=== PATIENT | female | born 2000 | race Two or more races ===

== ENCOUNTER 2025-05-28 09:35 | Emergency (ER) | payer OTHER, SELFPAY ==
[2025-05-28 09:44] VITALS: BP 107/70; PULSE 103; RESP 18; TEMP 38.1; O2SAT 100; BMI 28.5
--- NOTE | 2025-05-28 09:55 | PD.EDRME ---
Rapid Medical Screening Exam E Arrival date/time: 05/28/25 09:35 This is a 24-year-old female that comes into the emergency room with complaints of bodyaches, nausea, vomiting, diarrhea headache and mild abdominal pain/cramping. Patient states that on May 25 she became very ill at work and got dizzy. Patient was taken to a clinic in [place] and told that she likely has heat exhaustion. Patient returned to work the next day and was still not feeling better and was told that if she was not feeling better to come to the emergency room because she may need IV fluids. Patient does not think she is . Patient denies any other sick contacts. Patient denies any other symptoms. Patient denies past medical history. I have greeted and performed a focused initial assessment of this patient. Initial appropriate labs ordered at this time. A comprehensive ED assessment and evaluation of the patient and analysis of all test and completion of medical decision making process will be conducted by additional ED provider. Chief Complaint: Nausea/Vomiting/Diarrhea Time Seen by Provider: 05/28/25 09:54 Vital signs: Vital Signs Temperature 100.5 F H 05/28/25 09:44 Pulse Rate 103 H 05/28/25 09:44 Respiratory Rate 18 05/28/25 09:44 Blood Pressure 107/70 05/28/25 09:44 Pulse Oximetry (%) 100 05/28/25 09:44 Oxygen Delivery Method Room Air 05/28/25 09:44
[2025-05-28] MEDS: ACETAMINOPHEN 500 MG TABLET 1000 MG PO (10:23)
--- NOTE | 2025-05-28 10:24 | EDNOTE_ITS ---
ED General RME/HPI General Chief complaint: Nausea/Vomiting/Diarrhea Stated complaint: STEVENSON, vomiting, chest pain X 4 days Time Seen by Provider: 05/28/25 09:54 Arrival date/time: 05/28/25 09:35 RME / HPI RME / HPI narrative: 05/28/25 09:35 This is a 24-year-old female that comes into the emergency room with complaints of bodyaches, nausea, vomiting, diarrhea headache and mild abdominal pain/cramping. Patient states that on May 25 she became very ill at work and got dizzy. Patient was taken to a clinic in [place] and told that she likely has heat exhaustion. Patient returned to work the next day and was still not feeling better and was told that if she was not feeling better to come to the emergency room because she may need IV fluids. Patient does not think she is . Patient denies any other sick contacts. Patient denies any other symptoms. Patient denies past medical history. I have greeted and performed a focused initial assessment of this patient. Initial appropriate labs ordered at this time. A comprehensive ED assessment and evaluation of the patient and analysis of all test and completion of medical decision making process will be conducted by additional ED provider. DR. MENDOZA MAIN ED EVALUATION: 24-year-old female presents with 4 days of headache, chest pain, abdominal pain, and generalized body aches. No fevers or chills. No vomiting or diarrhea. No visual changes. No cough. No known past medical history and no surgical history. Last oral intake was yesterday. Related Data Previous Rx's ?Medication ?Instructions ?Recorded naproxen 500 mg tablet 500 mg PO BID PRN pain #30 t abs 07/28/23 Allergies Allergy/AdvReac Type Severity Reaction Status Date / Time Penicillins Allergy Verified 05/28/25 09:41 Review of Systems Review of Systems Systems Reviewed: All systems reviewed, normal except as documented Past Medical History Social History SMOKING STATUS: Never smoker SUBSTANCE USE: does not use ALCOHOL: Never ED Exam Narrative Physical exam: GENERAL APPEARANCE: alert and oriented x 4, well-developed, well-nourished, no acute distress VITALS: All vitals were reviewed and the pulse ox is 98% on room air, which is normal according to my interpretation. HEENT: Normocephalic, atraumatic; pupils equal, round, reactive to light; EOMI; mucous membranes pink, moist; oropharynx clear NECK: Supple LUNGS: CTABL; no wheezes, no rales, no rhonchi HEART: Regular rate, regular rhythm; normal S1, S2; no murmurs ABDOMEN: non distended; normal BS; soft, no tenderness, no guarding, no rebound; no masses, no organomegaly, no hernia BACK: no CVA tenderness EXTREMITIES: atraumatic; no edema NEUROLOGIC: awake; alert and oriented x4; cranial nerves II-XII grossly intact; no focal sensory or motor deficits PSYCHIATRIC: appropriate mood and affect SKIN: warm, dry, normal color; no rashes Course Quality Measures none Orders Category Date Time Status Bedside COVID-19 Antigen Test NOW Care 05/28/25 09:54 Active Bedside Influenza A&B Antigen Test NOW Care 05/28/25 09:55 Completed CBC Stat Lab 05/28/25 10:38 Completed CMP [Comprehensive Metabolic Panel] Stat Lab 05/28/25 10:38 Completed Drug Screen,Urine Stat Lab 05/28/25 12:30 Completed HCG Qualitative,Urine Stat Lab 05/28/25 12:30 Completed Lipase Stat Lab 05/28/25 10:38 Completed Urinalysis, C/S if Indicated Stat Lab 05/28/25 12:30 Completed Acetaminophen Tab [Tylenol ES Tab] Med 05/28/25 09:55 Discontinued 1,000 mg PO X1 ONE HYDROcodone*/APAP 5/325 [[place] 5/325] Med 05/28/25 14:30 Discontinued 1 tab PO X1 ONE Ketorolac Inj [Toradol Inj] Med 05/28/25 14:30 Discontinued 30 mg IM X1 ONE Ondansetron Odt [Zofran Odt] Med 05/28/25 14:30 Discontinued 4 mg PO X1 ONE Vital Signs Vital signs: Vital Signs Temperature 100.5 F H 05/28/25 09:44 Pulse Rate 103 H 05/28/25 09:44 Respiratory Rate 18 05/28/25 09:44 Blood Pressure 107/70 05/28/25 09:44 Pulse Oximetry (%) 100 05/28/25 09:44 Oxygen Delivery Method Room Air 05/28/25 09:44 Discharge Plan Plan Patient Disposition: HOME (Self Care) Prescriptions/Referrals Prescriptions/Med Rec: No Action naproxen 500 mg tablet 500 mg PO BID PRN (Reason: pain) Qty: 30 0RF Referrals: No Primary/Family,Physician [Primary Care Provider] - In 1 week Problem List Clinical Impression: Vomiting and diarrhea Patient/Caregiver Discharge Instructions Education Materials: ED Vomiting and Diarrhea ... Print Language: Citizen [place] Stand Alone Forms: [place] Award Info., Patient Portal Info Letter MDM Narrative [facility] hospital course: I, Dina Odonnell, am scribing for and in the presence of Dr. Mendoza. Clinical Information Provided by patient Medical Records Reviewed [facility] Meds/Rx Considered, not Ordered None Labs/Rad/Tests considered, not Ordered None Chronic Illness/Social Conditions which may negatively complicate care or outcome(s)-explain: None or not applicable Add or document further as needed: No known past medical history and no surgical history. EKG EKG not done Imaging Imaging interpretation: none Medication Administration(s) Medication Administration History Discontinued Medications Acetaminophen (Acetaminophen 500 Mg Tablet) 1,000 mg PO X1 ONE Stop: 05/28/25 09:56 Last Admin: 05/28/25 10:23 Dose: 1,000 mg Documented By: NICO Hydrocodone Bitart/Acetaminophen (Hydrocodone/Apap 5/325 Tablet) 1 tab PO X1 ONE Stop: 05/28/25 14:31 Last Admin: 05/28/25 14:40 Dose: 1 tab Documented By: MYRON Ketorolac Tromethamine (Ketorolac Inj 30 Mg/Ml Vial) 30 mg IM X1 ONE Stop: 05/28/25 14:31 Last Admin: 05/28/25 14:41 Dose: 30 mg Documented By: EF Ondansetron HCl (Ondansetron Odt 4 Mg Tabrap) 4 mg PO X1 ONE; Protocol Stop: 05/28/25 14:31 Last Admin: 05/28/25 14:40 Dose: 4 mg Documented By: EF Diagnosis Differential dx and/or dx ruled out: Viral syndrome, early influenza or COVID-19, and functional abdominal pain. Most likely dx, and/or detailed dx discussion: Vomiting and diarrhea Dispositon Disposition: Discharge Home
[2025-05-28 10:44] LABS: Basophils # (Auto) 0.0 Thou/mm3 (0.0-0.2); Basophils % (Auto) 0 % (0-2.5); Eosinophils # (Auto) 0.0 Thou/mm3 (0.0-0.5); Eosinophils % (Auto) 0 % (0-10); Hematocrit 38.5 % (36.0-46.0); Hemoglobin 12.1 g/dL (12.0-16.0); Immature Granulocytes Auto 0.02 Thou/mm3 (0.00-0.00); Lymphocytes # (Auto) 0.6 Thou/mm3 (1.0-4.8); Lymphocytes % (Auto) 8 % (10-50); Mean Corpuscular HGB Conc 31.4 g/dl (31.0-37.0); Mean Corpuscular Hemoglobin 23.7 pg (25.0-35.0); Mean Corpuscular Volume 76 fL (80-100); Monocytes # (Auto) 0.5 Thou/mm3 (0.0-0.8); Monocytes % (Auto) 7 % (0-12); Neutrophils # (Auto) 6.4 Thou/mm3 (1.8-7.7); Neutrophils % (Auto) 84 % (37-80); Nucleated Red Blood Cell # 0.00 Thou/mm3 (0.00-0.00); Nucleated Red Blood Cell % 0 /100 WBC (0); Platelet Count 304 Thou/mm3 (140-440); RDW Standard Deviation 41.0 fL (36.4-46.3); Red Blood Count 5.10 Miln/mm3 (4.00-5.20); White Blood Count 7.6 Thou/mm3 (3.6-11.0)
[2025-05-28 11:05] LABS: Alanine Aminotransferase 16 U/L (10-49); Albumin, Serum 4.8 gm/dL (3.5-5.0); Albumin/Globulin Ratio 1.8 (1.2-2.2); Alkaline Phosphatase 113 U/L (46-116); Anion Gap 11 (7-16); Aspartate Amino Transferase 22 U/L (0-34); BUN/Creatinine Ratio 13 Ratio (12-20); Bilirubin,Total 0.5 mg/dL (0.3-1.2); Blood Urea Nitrogen 9 mg/dL (9-23); Calcium 10.0 mg/dL (8.3-10.6); Calcium (Corrected) 10.0 mg/dL (8.5-10.1); Carbon Dioxide 23.8 mMol/L (20.0-31.0); Chloride 103 mMol/L (98-107); Creatinine (Component) 0.7 mg/dL (0.6-1.3); Estimated Creatinine Clearance 115.2 mL/min (>60); Globulin 2.7 gm/dL (2.3-3.5); Glucose 97 mg/dL (74-106); Lipase 27 U/L (12-53); Osmolality,Calculated 274 (275-295); Potassium 4.5 mMol/L (3.4-5.1); Sodium 138 mMol/L (136-145); Total Protein 7.5 gm/dL (5.7-8.2); eGFR > 60 See Note
[2025-05-28 12:56] LABS: Collection Type, Urine Voided
[2025-05-28 13:09] LABS: Bilirubin,Urine Negative (Negative); Blood,Urine 1+ (Negative); Clarity,Urine Clear (Clear/Hazy); Color,Urine Lt-Yellow (Lt Yel-Yel); Culture Indicated,Urine Not Indicated; Glucose, Urine Negative (Negative); Ketones,Urine Negative (Negative); Leukocyte Esterase,Urine Negative (Negative); Nitrite,Urine Negative (Negative); PH,Urine 8.0 (5.0-7.0); Protein,Urine Negative (Neg - Trace); RBC,Urine 2 /hpf (0-3); Specific Gravity,Urine 1.018 (1.001-1.035); Squamous Epithelial Cell,Urine 3 /hpf (0-5); Urobilinogen,Urine Negative mg/dL (0.0-1.0); WBC,Urine < 1 /hpf (0-5)
[2025-05-28 13:15] LABS: HCG Qualitative,Urine Negative
[2025-05-28 13:17] LABS: Amphetamine/Methamp Scrn,U Negative (Negative); Barbiturate Screen,Urine Negative (Negative); Benzodiazepines Screen,Urine Negative (Negative); Benzoylecgonine Screen, Ur Negative (Negative); Fentanyl Screen,Urine Negative (Negative); Opiate Screen,Urine Negative (Negative); THC Screen,Urine Negative (Negative)
[2025-05-28 14:13] VITALS: BP 119/82; PULSE 100; RESP 18; TEMP 37.1; O2SAT 98
[2025-05-28] MEDS: HYDROcodone/APAP 5/325 TABLET 1 TAB PO (14:40)
[2025-05-28] MEDS: ONDANSETRON ODT 4 MG TABRAP PO (14:40)
[2025-05-28] MEDS: KETOROLAC INJ 30 MG/ML VIAL IM (14:41)
[2025-05-28 15:14] VITALS: BP 123/76; PULSE 93; RESP 16; O2SAT 99
== END 2025-05-28 15:15 | disposition home or self-care (01) ==
PROVIDERS: Nurse Practitioner Family; Emergency Provider Emergency Medicine
DX: R11.2 Nausea with vomiting, unspecified (principal); R19.7 Diarrhea, unspecified; R07.9 Chest pain, unspecified; R10.9 Unspecified abdominal pain; R51.9 Headache, unspecified
CPT/HCPCS: 36415; 80053; 80307; 81001; 81025; 83690; 85025; 87400; 87811; 96372; 99283; J1885; Q0162; A9270